=== PATIENT | male | born 1990 ===

== ENCOUNTER → 2020-05-22 | Outpatient (CLI) | payer OTHER ==
[~2020-05-22] MED LIST: NABUMETONE500 MG PO; PERCOCET 5/3251 TAB PO
== END | disposition home or self-care (01) ==
LOC: MRI 06:34
PROVIDERS: ATTEND Orthopaedic Surgery
DX: M25.562 Pain in left knee (principal); M25.561 Pain in right knee
CPT/HCPCS: 73721